=== PATIENT | female | born 1995 | race Caucasian/White ===

== ENCOUNTER 2017-08-20 10:54 | Emergency (ER) | payer OTHER ==
[~2017-08-20] VITALS: Ht 177.8 cm; Wt 53.0 kg
[2017-08-20 11:10] VITALS: BP 130/72; PULSE 92; RESP 18; TEMP 97.6; O2SAT 100
[2017-08-20] MEDS ORDERED: CLON1 PO (11:25)
[2017-08-20] MEDS ORDERED: CYMB60CA PO (11:25)
[2017-08-20] MEDS ORDERED: CIPR250T52 PO (11:25)
[2017-08-20] MEDS ORDERED: LEVE500 PO (11:25)
[2017-08-20] MEDS ORDERED: BENZ100 PO (11:26)
--- NOTE | 2017-08-20 11:53 | PD ---
HPI Chief Complaint: Anxiety Time Seen by Provider: 11:00 Travel History International Travel<30 days: No Contact w/Intl Traveler<30days: No Traveled to known affect area: No History of Present Illness HPI 21-year-old female presents to the emergency department as a Petit act complaining of anxiety. States that she cut her left hand today because she "wanted to feel pain". Patient does have a history of anxiety and follows her primary care physician and therapist. Patient denies suicidal or homicidal ideations at this time and has a history of fibromyalgia. She takes Keppra, clonazepam, and Cymbalta. At this point patient does not want to cut herself anymore. She did not realize how sharp the knife was. She does not remember her last tetanus shot however, she refuses any way. Patient states she occasionally smokes weed but denies any other drug use. She denies overdose on medication. PFSH Past Medical History Asthma: Yes Anxiety: Yes Depression: Yes Medical other: Yes (FIBRA MYAGIA, EDWIGE JOSHSON SYNDROM ) Seizures: Yes ?: Not LMP: 08/17/17 Past Surgical History Surgical History: No Previous Surgery Social History Alcohol Use: No Tobacco Use: No Substance Use: No Allergies-Medications (Allergen,Severity, Reaction): Coded Allergies: doxycycline (Verified Allergy, Severe, 08/20/17) phenytoin (Verified Allergy, Severe, 08/20/17) sulfamethoxazole (Verified Allergy, Severe, 08/20/17) trimethoprim (Verified Allergy, Severe, 08/20/17) Uncoded Allergies: Z-PACK (Allergy, Severe, 08/20/17) Reported Meds & Prescriptions Reported Meds & Active Scripts Active Keflex (Cephalexin) 500 Mg Cap 500 Mg PO Q8H 7 Days Reported Tessalon Perles (Benzonatate) 100 Mg Cap 100 Mg PO TID PRN Cipro (Ciprofloxacin HCl) 250 Mg Tab Unknown Dose PO DAILY Cymbalta DR (Duloxetine HCl) 60 Mg Capdr 60 Mg PO DAILY Klonopin (Clonazepam) 1 Mg Tab 1 Mg PO BID PRN Keppra (Levetiracetam) 500 Mg Tab 500 Mg PO BID Review of Systems Except as stated in HPI: all other systems reviewed are Neg Physical Exam Narrative GENERAL: Well-nourished, well-developed patient. SKIN: Focused skin assessment warm/dry. HEAD: Normocephalic. EYES: No scleral icterus. No injection or drainage. PERRLA NECK: Supple, trachea midline. No JVD or lymphadenopathy. CARDIOVASCULAR: Regular rate and rhythm without murmurs, gallops, or rubs. RESPIRATORY: Breath sounds equal bilaterally. No accessory muscle use. GASTROINTESTINAL: Abdomen soft, non-tender, nondistended. MUSCULOSKELETAL: No cyanosis, or edema. Left hand- medial aspect of hypo-thenar with a 3 cm laceration not involving the tendons or ligaments. Muscle visualized but no obvious injury. Not grossly contaminated, linear laceration BACK: Nontender without obvious deformity. No CVA tenderness. Data Data Last Documented VS Vital Signs Date Time Temp Pulse Resp B/P (MAP) Pulse Ox O2 Delivery O2 Flow Rate FiO2 08/20/17 18:00 110 18 109/55 (73) Room Air 08/20/17 16:14 98.6 98 Orders Orders Complete Blood Count With Diff (08/20/17 11:36) Comprehensive Metabolic Panel (08/20/17 11:36) Urinalysis - C+S If Indicated (08/20/17 11:36) Ed Urine Pregnancytest Poc (08/20/17 11:36) Psych Screen (08/20/17 11:36) Drug Screen, Random Urine (08/20/17 11:36) Potassium Chloride (Kcl) (08/20/17 13:00) Lidocaine 1% Inj (50 Ml) (Xylocaine 1% I (08/20/17 13:00) Hand, Limited (2vws) (08/20/17 ) Labs Laboratory Tests Test 08/20/17 11:50 08/20/17 12:00 White Blood Count 11.6 TH/MM3 Red Blood Count 4.92 MIL/MM3 Hemoglobin 13.8 GM/DL Hematocrit 39.3 % Mean Corpuscular Volume 80.0 FL Mean Corpuscular Hemoglobin 28.1 PG Mean Corpuscular Hemoglobin Concent 35.1 % Red Cell Distribution Width 14.3 % Platelet Count 418 TH/MM3 Mean Platelet Volume 7.5 FL Neutrophils (%) (Auto) 61.3 % Lymphocytes (%) (Auto) 29.9 % Monocytes (%) (Auto) 7.8 % Eosinophils (%) (Auto) 0.7 % Basophils (%) (Auto) 0.3 % Neutrophils # (Auto) 7.1 TH/MM3 Lymphocytes # (Auto) 3.5 TH/MM3 Monocytes # (Auto) 0.9 TH/MM3 Eosinophils # (Auto) 0.1 TH/MM3 Basophils # (Auto) 0.0 TH/MM3 CBC Comment DIFF FINAL Differential Comment Blood Urea Nitrogen 9 MG/DL Creatinine 0.79 MG/DL Random Glucose 81 MG/DL Total Protein 7.8 GM/DL Albumin 3.9 GM/DL Calcium Level 8.7 MG/DL Alkaline Phosphatase 59 U/L Aspartate Amino Transf (AST/SGOT) 7 U/L Alanine Aminotransferase (ALT/SGPT) 19 U/L Total Bilirubin 0.5 MG/DL Sodium Level 138 MEQ/L Potassium Level 2.9 MEQ/L Chloride Level 104 MEQ/L Carbon Dioxide Level 24.8 MEQ/L Anion Gap 9 MEQ/L Estimat Glomerular Filtration Rate 94 ML/MIN Urine Color LIGHT-YELLOW Urine Turbidity HAZY Urine pH 7.5 Urine Specific [place] 1.006 Urine Protein NEG mg/dL Urine Glucose (UA) NEG mg/dL Urine Ketones TRACE mg/dL Urine Occult Blood NEG Urine Nitrite NEG Urine Bilirubin NEG Urine Urobilinogen LESS THAN 2.0 MG/DL Urine Leukocyte Esterase SMALL Urine RBC 2 /hpf Urine WBC 5 /hpf Urine Squamous Epithelial Cells 25 /hpf Urine Transitional Epithelial Cells 1 /hpf Urine Renal Epithelial Cells <1 /hpf Urine Bacteria FEW /hpf Microscopic Urinalysis Comment CULT NOT INDICATED Urine Opiates Screen NEG Urine Barbiturates Screen NEG Urine Amphetamines Screen NEG Urine Benzodiazepines Screen NEG Urine Cocaine Screen NEG Urine Cannabinoids Screen POS MDM Medical Decision Making Medical Screen Exam Complete: Yes Emergency Medical Condition: Yes Differential Diagnosis Left hand laceration versus abrasion versus avulsion Anxiety versus depression versus suicidal ideations Narrative Course 21-year-old female presents to the emergency department as a Petit act complaining of anxiety. States that she cut her left hand today because she "wanted to feel pain". Patient does have a history of anxiety and follows her primary care physician and therapist. Patient denies suicidal or homicidal ideations at this time and has a history of fibromyalgia. She takes Keppra, clonazepam, and Cymbalta. At this point patient does not want to cut herself anymore. She did not realize how sharp the knife was. She does not remember her last tetanus shot however, she refuses any way. Patient states she occasionally smokes weed but denies any other drug use. She denies overdose on medication. Patient states that she is due to see a urologist because of "bloody urine' other urinalysis did not demonstrate excessive blood. Potassium- 2.9, 40 mEq KCl administered. Laceration repair- inspection of the wound and x-ray demonstrated no involvement of the deeper bone structure. 2 point discrimination normal, neurovascularly intact Remaining labs noncontributory. I discussed this case with my attending, Dr. Narvaez for evaluation of the laceration. Patient will try Keflex. Note that she does have a sensitive GI tract medications. Advised on risk versus benefit and she agreed to take this medication.. Also advised on risk versus benefit of tetanus vaccination. Patient refused. Patient is medically cleared to see psych. Procedures Procedure Narrative LACERATION LOCATION: Left hyperthenar region LENGTH: 3 cm NUMBER OF STITCHES/RAHEEM: 11 interrupted sutures, 3 subcutaneous sutures REPAIR: The area of the laceration was prepped with Betadine and sterilely draped. The laceration was infiltrated with Lidocaine 1%. The wound was copiously irrigated and explored without evidence of foreign body, tendon injury or neurovascular injury. The wound was closed using 11 5-0 Prolene, 3 5-0 Vicryl. This was a double layer repair. A sterile dressing was applied. The patient was advised to keep the dressing clean and dry. Patient tolerated the procedure well. Diagnosis Primary Impression: Anxiety Additional Impression: Laceration of left hand Qualified Codes: S61.412A - Laceration without foreign body of left hand, initial encounter Scripts Cephalexin (Keflex) 500 Mg Cap 500 MG PO Q8H for Infection for 7 Days, #21 CAP 0 Refills Prov: Cristopher Narvaez MD 08/20/17 Condition: Stable Ashely Rowe Aug 20, 2017 11:53
[2017-08-20 12:20] LABS: AUTOMATED NEUTROPHIL # 7.1 TH/MM3 (1.8-7.7); BASOPHIL % 0.3 % (0.0-2.0); EOSINOPHIL # 0.1 TH/MM3 (0-0.4); EOSINOPHIL % 0.7 % (0.0-4.0); HEMATOCRIT 39.3 % (35.0-46.0); HEMO FLAGS DIFF FINAL; LYMPH % 29.9 % (9.0-44.0); LYMPHOCYTE # 3.5 TH/MM3 (1.0-4.8); MEAN CORPUSCULAR HEMOGLOBIN 28.1 PG (27.0-34.0); MEAN CORPUSCULAR HGB CONC 35.1 % (32.0-36.0); MONO % 7.8 % (0.0-8.0); NEUT % 61.3 % (16.0-70.0); PLATELET COUNT 418 TH/MM3 (150-450); RED BLOOD COUNT 4.92 MIL/MM3 (4.00-5.30); RED CELL DISTRIBUTION WIDTH 14.3 % (11.6-17.2); WHITE BLOOD COUNT 11.6 TH/MM3 (4.0-11.0)
[2017-08-20 12:28] LABS: BACTERIA, URINE FEW /hpf; BLOOD, URINE NEG (NEG); COMMENT (UR) CULT NOT INDICATED; CULTURE IF INDICATED CULT NOT INDICATED; GLUCOSE,URINE NEG (NEG); KETONE, URINE TRACE mg/dL (NEG); NITRITE,URINE NEG (NEG); PH, URINE 7.5 (5.0-8.5); RENAL EPITHELIAL CELLS <1 /hpf; SQUAMOUS EPITHELIAL CELL URINE 25 /hpf (0-5); TRANSITIONAL EPI CELLS, URINE 1 /hpf; URINE COLOR LIGHT-YELLOW (YELLW/STRAW)
[2017-08-20 12:42] LABS: ALKALINE PHOSPHATASE 59 U/L (45-117); ALT (GPT) 19 U/L (9-42); ANION GAP 9 MEQ/L (5-15); AST (GOT) 7 U/L (16-38); BICARBONATE 24.8 MEQ/L (21.0-32.0); BLOOD UREA NITROGEN 9 MG/DL (7-18); CHLORIDE 104 MEQ/L (98-107); GLOMERULAR FILTRATION RATE 94 ML/MIN (>89); SODIUM (NA) 138 MEQ/L (136-145); TOTAL BILIRUBIN ADULT 0.5 MG/DL (0.2-1.0)
[2017-08-20 12:46] LABS: POTASSIUM 2.9 MEQ/L (3.5-5.1)
[2017-08-20] MEDS ORDERED: LIDOCAINE HCL 1% 50 ML VIAL INFIL ONE (13:00)
[2017-08-20] MEDS ORDERED: POTASSIUM CHLORIDE 10 MEQ CONTROLLED RELEASE TAB PO ONE (13:00)
--- NOTE | 2017-08-20 14:14 | RADRPT ---
EXAM DATE/TIME: 08/20/2017 14:01 [facility] COMPARISON: No previous studies available for comparison. INDICATIONS : Self inflicted lacerated left hand. MEDICAL HISTORY : None. SURGICAL HISTORY : None. ENCOUNTER: Initial ACUITY: 1 day PAIN SCORE: 0/10 LOCATION: Left between first and second digits palm of hand. FINDINGS: Two view examination of the left hand demonstrates no soft tissue swelling, dislocation, or fracture. The joint spaces are maintained. Bony mineralization is normal. No radiopaque foreign bodies. CONCLUSION: The osseous structures are intact. Morro Nick MD on August 20, 2017 at 14:12 Board Certified Radiologist. This report was verified electronically.
[2017-08-20] MEDS ORDERED: CEPH-460 PO (14:51)
[2017-08-20 16:14] VITALS: BP 103/64; PULSE 120; RESP 24; TEMP 98.6; O2SAT 98
[2017-08-20 18:00] VITALS: BP 109/55; PULSE 110; RESP 18
[2017-08-20] MEDS ORDERED: levETIRAcetam 500 MG TAB PO SCH (21:00)
[2017-08-20] MEDS ORDERED: CEPHALEXIN MONOHYDRATE 500 MG CAP PO SCH (22:00)
[2017-08-20 22:17] VITALS: BP 95/51; PULSE 80; RESP 18; O2SAT 99
== END 2017-08-20 23:47 ==
LOC: NEPD 10:54 → NEPJ 23:47
DX: F41.9 Anxiety disorder, unspecified (principal); S61.412A Laceration without foreign body of left hand, initial encounter; M79.7 Fibromyalgia; J45.909 Unspecified asthma, uncomplicated; F32.9 Major depressive disorder, single episode, unspecified; R56.9 Unspecified convulsions; Z79.899 Other long term (current) drug therapy; X78.1XXA Intentional self-harm by knife, initial encounter; Z88.2 Allergy status to sulfonamides
CPT/HCPCS: 12042; 73120; 80053; 80307; 81001; 84703; 85025